=== PATIENT | male | born 1975 | race American Indian/Alaskan Native ===

== ENCOUNTER 2020-06-21 23:09 | Inpatient (IN) | payer OTHER ==
[2020-06-22 00:42] LABS: Basophils # (Auto) 0.1 K/mm3 (0.0-0.1); Eosinophils % (Auto) 0.6 % (0.0-4.3); Hematocrit 37.2 % (35.5-45.6); Hemoglobin 12.6 gm/dl (11.8-15.2); Lymphocytes # (Auto) 2.1 K/mm3 (1.2-5.4); Lymphocytes % (Auto) 34.9 % (13.4-35.0); Mean Corpuscular HGB Conc 34 % (32-34); Mean Corpuscular Volume 87 fl (84-94); Monocytes # (Auto) 0.3 K/mm3 (0.0-0.8); Monocytes % (Auto) 5.8 % (0.0-7.3); Platelet Count 226 K/mm3 (140-440); Red Blood Count 4.25 M/mm3 (3.65-5.03); Red Cell Distribution Width 12.8 % (13.2-15.2)
[2020-06-22 01:20] LABS: BUN/Creatinine Ratio 7; Blood Urea Nitrogen 8 mg/dL (9-20); Calcium 9.6 mg/dL (8.4-10.2); Hemolysis Index 43
[2020-06-22] MEDS ORDERED: SODIUM CHLORIDE 0.9% 1000 ML 1,000 ML IV ONE (02:06)
[2020-06-22] MEDS ORDERED: THIAMINE 100 MG, FOLIC ACID 1 MG, MULTIPLE VITAMIN INJ, ADULT 10 ML in SODIUM CHLORIDE ... IV ONE (02:06)
--- NOTE | 2020-06-22 02:11 | Emergency Department Report ---
ED Medical Clearance HPI - General Chief complaint: Medical Clearance Stated complaint: HYPERTENSION Time Seen by Provider: 06/22/20 02:05 Source: patient, EMS Mode of arrival: Stretcher Limitations: No Limitations - History of Present Illness Initial comments: Patient is a 45-year-old male that presents emergency room with complaints of needing medical clearance and high blood pressure. Patient states he went to [place] to go to the [facility] rehab for alcoholism and cocaine abuse and they found his blood pressure to be elevated and he sent him here for medical clearance. Patient states that he has alcoholism and is been doing pretty good with his sobriety but he relapsed this week. Patient states his been using marijuana and cocaine regularly. Patient states he has a past medical history of hypertension and diabetes. Patient denies chest pain/shortness of breath. Patient does not have any physical complaints. Patient denies abdominal pain. Patient states he did not take any of his blood pressure or diabetes medications for the last 24 to 48 hours. Patient denies recent travel. Patient denies recent international travel. Patient denies exposure to the novel coronavirus. Patient denies sick contacts. Patient denies fever and chills. Patient denies cough. Patient denies diarrhea. Patient denies coming in contact with anybody with symptoms of the novel coronavirus. MD Complaint: medical clearance request -: Sudden Reason for Medical Clearance: medical condition, psychiatric condition Place: home Alledged Intoxication: No Compliant with Home Medications: No Traumatic Symptoms: denies traumatic injury Associated Symptoms: denies other symptoms. denies: chest pain, shortness of breath, palpitations, diaphoresis, confusion, cough, fever/chills, headaches, anorexia, malaise, nausea/vomiting, rash, seizure, syncope, weakness Treatments Prior to Arrival: none Allergies/Adverse reactions: Allergies Allergy/AdvReac Type Severity Reaction Status Date / Time codeine Allergy Hives Verified 06/22/20 00:09 morphine Allergy Itching Verified 06/22/20 00:09 tramadol Allergy Hives Verified 06/22/20 00:09 ED Review of Systems ROS: Stated complaint: HYPERTENSION Other details as noted in HPI Constitutional: denies: chills, fever Eyes: denies: eye pain, eye discharge, vision change ENT: denies: ear pain, throat pain Respiratory: denies: cough, shortness of breath, wheezing Cardiovascular: denies: chest pain, palpitations Endocrine: no symptoms reported Gastrointestinal: denies: abdominal pain, nausea, diarrhea Genitourinary: denies: urgency, dysuria Musculoskeletal: denies: back pain, joint swelling, arthralgia Skin: denies: rash, lesions Neurological: denies: headache, weakness, paresthesias Psychiatric: denies: anxiety, depression Hematological/Lymphatic: denies: easy bleeding, easy bruising ED Past Medical Hx - Past Medical History Previous Medical History?: Yes Hx Hypertension: Yes Hx Diabetes: Yes Additional medical history: AVN (Bilateral hips) - Surgical History Past Surgical History?: Yes Additional Surgical History: Hernia Repair - Family History Family history: no significant - Social History Smoking Status: Current Every Day Smoker Substance Use Type: Alcohol, Cocaine, Marijuana ED Physical Exam - General Limitations: No Limitations General appearance: alert, in no apparent distress - Head Head exam: Present: atraumatic, normocephalic - Eye Eye exam: Present: normal appearance - ENT ENT exam: Present: mucous membranes moist - Neck Neck exam: Present: normal inspection - Respiratory Respiratory exam: Present: normal lung sounds bilaterally. Absent: respiratory distress - Cardiovascular Cardiovascular Exam: Present: regular rate, normal rhythm. Absent: systolic murmur, diastolic murmur, rubs, gallop - GI/Abdominal GI/Abdominal exam: Present: soft, normal bowel sounds - Rectal Rectal exam: Present: deferred - Extremities Exam Extremities exam: Present: normal inspection - Back Exam Back exam: Present: normal inspection - Neurological Exam Neurological exam: Present: alert, oriented X3 - Psychiatric Psychiatric exam: Present: normal affect, normal mood - Skin Skin exam: Present: warm, dry, intact, normal color. Absent: rash ED Course Vital Signs 06/22/20 06/22/20 06/22/20 00:02 02:04 02:16 Temperature 97.9 F Pulse Rate 82 Respiratory 18 Rate Blood Pressure 179/107 174/101 O2 Sat by Pulse 97 98 99 Oximetry 06/22/20 06/22/20 06/22/20 02:30 02:46 03:00 Temperature Pulse Rate Respiratory Rate Blood Pressure 173/98 167/99 171/100 O2 Sat by Pulse 98 99 98 Oximetry 06/22/20 06/22/20 06/22/20 03:16 03:30 03:46 Temperature Pulse Rate Respiratory Rate Blood Pressure 183/114 171/100 176/120 O2 Sat by Pulse 99 98 98 Oximetry 06/22/20 06/22/20 06/22/20 04:00 04:16 04:30 Temperature Pulse Rate Respiratory Rate Blood Pressure 185/131 194/123 180/113 O2 Sat by Pulse 100 99 100 Oximetry 06/22/20 04:46 Temperature Pulse Rate Respiratory Rate Blood Pressure 167/107 O2 Sat by Pulse 100 Oximetry - Reevaluation(s) Reevaluation #1: Patient blood pressure significantly high. Patient will be given hydralazine. Patient also will be given insulin. 06/22/20 03:28 Reevaluation #2: Patient blood sugar remains significantly high. Patient's blood pressure improving. I discussed all results with patient. I discussed plan of care with patient. Patient agrees with plan of care and admission. Patient to be admitted to the hospitalist service. 06/22/20 05:13 - Consultations Consultation #1: Hospitalist consulted for admission. Hospitalist to admit patient. 06/22/20 05:13 ED Medical Decision Making - Lab Data Result diagrams: 06/22/20 00:20 06/22/20 00:20 - Medical Decision Making Patient is a 45-year-old male that presents emergency room with complaints of needing medical clearance and hypertension. Patient had labs done which showed hyperglycemia. Patient has been noncompliant with his blood pressure and his diabetes medications for 2 days. Patient recently relapsed with alcohol and cocaine. Patient blood pressure elevated and patient was given hydralazine and his blood pressure improved. Patient's blood sugar significantly high and patient was given 15 units of insulin and fluids and the patient's blood sugar minimally improved. Patient then placed on a insulin drip. Patient admitted to the hospitalist service. Patient will be medically cleared by the hospitalist service. Critical care time documented. - Differential Diagnosis Medical clearance, hyperglycemia, noncompliance, cocaine abuse, HTN ED Disposition Clinical Impression: Hypertensive emergency, HHNC (hyperglycemic hyperosmolar nonketotic coma), Coca ine abuse, Alcohol abuse, Hypernatremia Disposition: OP ADMIT IP TO THIS HOSP Is pt being admited?: Yes Does the pt Need Aspirin: No Condition: Critical Instructions: Hypertension (ED) Referrals: PRIMARY CARE, [Primary Care Provider] - 3-5 Days Time of Disposition: 05:15 Critical Care Time: Yes Critical care time in (mins) excluding proc time.: 45 Critical care attestation.: If time is entered above; I have spent that time in minutes in the direct care of this critically ill patient, excluding procedure time. Critical Care Time: 45 MINUTES
[2020-06-22 02:38] LABS: Bilirubin,Urine NEG (Negative); Blood,Urine NEG (Negative); Color,Urine Colorless (Yellow); Protein,Urine <15 mg/dL mg/dL (Negative); Urobilinogen,Urine < 2.0 mg/dL (<2.0)
[2020-06-22 02:45] LABS: Amphetamine Screen,Urine PRESUMPTIVE NEGATIVE; Benzodiazepines Screen,Urine PRESUMPTIVE NEGATIVE; Cannabinoid Screen,Urine PRESUMPTIVE NEGATIVE; Cocaine Screen,Urine PRESUMPTIVE POSITIVE; Methadone Screen,Urine PRESUMPTIVE NEGATIVE; Opiate Screen,Urine PRESUMPTIVE NEGATIVE
[2020-06-22] MEDS ORDERED: hydrALAZINE 100 MG TAB PO ONE (03:26)
[2020-06-22] MEDS ORDERED: INSULIN REGULAR, HUMAN 100 UNIT/ML 3ML VIAL IV ONE (03:27)
[2020-06-22] MEDS ORDERED: IPRATROPIUM 0.02% NEBU 2.5 ML IH ONE (03:46)
[2020-06-22] MEDS ORDERED: ALBUTEROL 2.5 MG/3 ML NEBU IH ONE (03:46)
[2020-06-22] MEDS ORDERED: DEXTROSE 50% IN WATER (25GM) 50 ML SYRINGE IV PRN ×2 (05:12→06:55)
[2020-06-22] MEDS ORDERED: LORazepam 2 MG/ML VIAL IV PRN ×3 (05:14)
[2020-06-22] MEDS ORDERED: INSULIN REGULAR, HUMAN 100 UNITS in SODIUM CHLORIDE 0.9% 99 ML IV SCH (06:00)
[2020-06-22 06:03] LABS: BUN/Creatinine Ratio 7; Blood Urea Nitrogen 7 mg/dL (9-20); Calcium 9.2 mg/dL (8.4-10.2); Hemolysis Index 12
[2020-06-22] MEDS ORDERED: ACETAMINOPHEN 325 MG TAB PO PRN (06:48)
[2020-06-22] MEDS ORDERED: ONDANSETRON 4 MG/2 ML INJ IV PRN (06:52)
--- NOTE | 2020-06-22 07:04 | History and Physical Report ---
History of Present Illness Date of examination: 06/22/20 Date of admission: 06/22/20 Chief complaint: ELEVATED BLOOD PRESSURE Past History Past Medical History: diabetes, hypertension Past Surgical History: hernia repair Social history: alcohol abuse, other (COCAIN , MARIJUANA) Medications and Allergies Allergies Allergy/AdvReac Type Severity Reaction Status Date / Time codeine Allergy Hives Verified 06/22/20 00:09 morphine Allergy Itching Verified 06/22/20 00:09 tramadol Allergy Hives Verified 06/22/20 00:09 Active Meds: Active Medications Acetaminophen (Tylenol) 650 mg PO Q4H PRN PRN Reason: Headache Dextrose (D50w (25gm) Syringe) 50 ml IV Q30MIN PRN; Protocol PRN Reason: Hypoglycemia Dextrose (D50w (25gm) Syringe) 50 ml IV Q30MIN PRN; Protocol PRN Reason: Hypoglycemia Heparin Sodium (Porcine) (Heparin) 5,000 unit SUB-Q Q12HR AYANNA Hydralazine HCl (Apresoline) 25 mg PO Q8HR AYANNA Insulin Human Regular (Humulin R) 0 unit SUB-Q AC AYANNA; Protocol Insulin Human Regular (Humulin R) 0 unit SUB-Q QHS AYANNA; Protocol Labetalol HCl (Labetalol) 10 mg IV Q8H PRN PRN Reason: Blood Pressure Lorazepam (Ativan) 2 mg IV Q1HR PRN PRN Reason: CIWA-Ar 8-15 Lorazepam (Ativan) 4 mg IV Q1HR PRN PRN Reason: CIWA-Ar 16-25 Lorazepam (Ativan) 4 mg IV Q15MIN PRN PRN Reason: CIWA-Ar >25 Ondansetron HCl (Zofran) 4 mg IV Q8H PRN PRN Reason: Nausea And Vomiting Review of Systems Constitutional: no weight loss, no weight gain, no fever, no chills, no sweats, no night sweats, no fatigue, no weakness, no malaise Eyes: bilateral: other (NO BILATERAL EYE SYMPTOM) Ears, nose, mouth and throat: no ear pain, no ear discharge, no tinnitis, no nose pain Cardiovascular: high blood pressure, no chest pain, no palpitations, no lightheadedness Respiratory: no cough, no shortness of breath, no dyspnea on exertion Gastrointestinal: no abdominal pain, no nausea, no vomiting, no diarrhea, no constipation, no change in bowel habits, no hematemesis, no coffee ground emesis, no melena Genitourinary Male: no dysuria, no hematuria, no flank pain, no discharge, no urinary frequency, no urinary hesitancy, no nocturia, no erectile dysfunction Rectal: no pain, no itching Musculoskeletal: no neck stiffness, no neck pain, no shooting arm pain, no arm numbness/tingling, no low back pain, no shooting leg pain, no leg numbness/tingling Integumentary: no rash, no pruritis, no redness, no sores, no wounds, no jaundice, no boils, no bullae, no lesions, no darkening of skin, no depigmentation, no acne Neurological: no head injury, no paralysis, no weakness, no parathesias, no numbness, no tingling, no seizures, no syncope, no tremors, no vertigo, no headaches, no convulsions Psychiatric: no anxiety, no confusion Endocrine: no cold intolerance, no polydipsia, no polyuria, no nocturia Hematologic/Lymphatic: no lymphadenopathy Allergic/Immunologic: no urticaria Exam - Constitutional Vitals: Temp Pulse Resp BP Pulse Ox 97.9 F 82 18 167/107 100 06/22/20 00:02 06/22/20 00:02 06/22/20 00:02 06/22/20 04:46 06/22/20 04:46 General appearance: Present: no acute distress - EENT Eyes: Present: PERRL ENT: hearing intact, clear oral mucosa, dentition normal - Neck Neck: Present: supple, normal ROM. Absent: carotid bruits - Respiratory Respiratory effort: normal - Cardiovascular Rhythm: regular Heart Sounds: Present: S1 & S2. Absent: gallop - Extremities Extremities: no ischemia, No edema Peripheral Pulses: within normal limits - Abdominal General gastrointestinal: Present: soft, non-tender, non-distended. Absent: tender, distended, rigid, mass Male genitourinary: Present: deferred - Rectal Rectal Exam: deferred - Integumentary Integumentary: Present: clear, warm, dry - Musculoskeletal Musculoskeletal: strength equal bilaterally - Psychiatric Psychiatric: appropriate mood/affect HEART Score - HEART Score Risk factors: 1-2 risk factors Troponin: < normal limit - Critical Actions Critical Actions: 0-3 pts:0.9-1.7%risk of adverse cardiac event.Candidate for discharge Results - Labs CBC & Chem 7: 06/22/20 00:20 06/22/20 05:20 Labs: Laboratory Last Values WBC 5.9 K/mm3 (4.5-11.0) 06/22/20 00:20 RBC 4.25 M/mm3 (3.65-5.03) 06/22/20 00:20 Hgb 12.6 gm/dl (11.8-15.2) 06/22/20 00:20 Hct 37.2 % (35.5-45.6) 06/22/20 00:20 MCV 87 fl (84-94) 06/22/20 00:20 MCH 30 pg (28-32) 06/22/20 00:20 MCHC 34 % (32-34) 06/22/20 00:20 RDW 12.8 % (13.2-15.2) L 06/22/20 00:20 Plt Count 226 K/mm3 (140-440) 06/22/20 00:20 Lymph % (Auto) 34.9 % (13.4-35.0) 06/22/20 00:20 Upson % (Auto) 5.8 % (0.0-7.3) 06/22/20 00:20 Eos % (Auto) 0.6 % (0.0-4.3) 06/22/20 00:20 Baso % (Auto) 1.0 % (0.0-1.8) 06/22/20 00:20 Lymph # 2.1 K/mm3 (1.2-5.4) 06/22/20 00:20 Upson # 0.3 K/mm3 (0.0-0.8) 06/22/20 00:20 Eos # 0.0 K/mm3 (0.0-0.4) 06/22/20 00:20 Baso # 0.1 K/mm3 (0.0-0.1) 06/22/20 00:20 Seg Neutrophils % 57.7 % (40.0-70.0) 06/22/20 00:20 Seg Neutrophils # 3.4 K/mm3 (1.8-7.7) 06/22/20 00:20 Sodium 135 mmol/L (137-145) L 06/22/20 05:20 Potassium 3.5 mmol/L (3.6-5.0) L 06/22/20 05:20 Chloride 95.3 mmol/L (98-107) L 06/22/20 05:20 Carbon Dioxide 26 mmol/L (22-30) 06/22/20 05:20 Anion Gap 17 mmol/L 06/22/20 05:20 BUN 7 mg/dL (9-20) L 06/22/20 05:20 Creatinine 1.0 mg/dL (0.8-1.3) 06/22/20 05:20 Estimated GFR > 60 ml/min 06/22/20 05:20 BUN/Creatinine Ratio 7 % 06/22/20 05:20 Glucose 302 mg/dL (75-100) H 06/22/20 05:20 POC Glucose 291 (70-105) H 06/22/20 06:06 Calcium 9.2 mg/dL (8.4-10.2) 06/22/20 05:20 Phosphorus 2.30 mg/dL (2.5-4.5) L 06/22/20 05:20 Magnesium 1.80 mg/dL (1.7-2.3) 06/22/20 05:20 Urine Color Colorless (Yellow) 06/22/20 00:13 Urine Turbidity Clear (Clear) 06/22/20 00:13 Urine pH 5.0 (5.0-7.0) 06/22/20 00:13 Ur Specific [place] 1.028 (1.003-1.030) 06/22/20 00:13 Urine Protein <15 mg/dl mg/dL (Negative) 06/22/20 00:13 Urine Glucose (UA) >=500 mg/dL (Negative) 06/22/20 00:13 Urine Ketones Neg mg/dL (Negative) 06/22/20 00:13 Urine Blood Neg (Negative) 06/22/20 00:13 Urine Nitrite Neg (Negative) 06/22/20 00:13 Urine Bilirubin Neg (Negative) 06/22/20 00:13 Urine Urobilinogen < 2.0 mg/dL (<2.0) 06/22/20 00:13 Ur Leukocyte Esterase Neg (Negative) 06/22/20 00:13 Urine WBC (Auto) 0.0 /HPF (0.0-6.0) 06/22/20 00:13 Urine RBC (Auto) 2.0 /HPF (0.0-6.0) 06/22/20 00:13 Salicylates < 0.3 mg/dL (2.8-20.0) L 06/22/20 00:20 Urine Opiates Screen Presumptive negative 06/22/20 00:13 Urine Methadone Screen Presumptive negative 06/22/20 00:13 Acetaminophen 5.0 ug/mL (10.0-30.0) L 06/22/20 00:20 Ur Barbiturates Screen Presumptive negative 06/22/20 00:13 Ur Phencyclidine Scrn Presumptive negative 06/22/20 00:13 Ur Amphetamines Screen Presumptive negative 06/22/20 00:13 U Benzodiazepines Scrn Presumptive negative 06/22/20 00:13 Urine Cocaine Screen Presumptive positive 06/22/20 00:13 U Marijuana (THC) Screen Presumptive negative 06/22/20 00:13 Drugs of Abuse Note Disclamer 06/22/20 00:13 Plasma/Serum Alcohol < 0.01 % (0-0.07) 06/22/20 00:20 Assessment and Plan - Patient Problems (1) Hypertensive crisis Current Visit: Yes Status: Acute Plan to address problem: 1. I.V LABETALOL PRN FOR BLOOD P[RESSURE OF 150/90 OR GREATER 2. TABLET HYDRALAZINE 25 MG PO Q8H (2) Hyperosmolar syndrome Current Visit: Yes Status: Acute Plan to address problem: 1. IV INSULIN DRIP PER PROTOCOL 2. SERIAL BMP TESTS 3. ACCUCHECKS Q I HOUR THEN CHANGE TO ACQHS WHEN BLOOD SUGAR IS REDUCED TO BELOW 400MG/DL AND PATIENT SWITCHED TO SLIDING SCALE COVERAGE. 4.. DIABETIC DIET AND LOW SODIUM DIET.
[2020-06-22] MEDS ORDERED: INSULIN REGULAR, HUMAN 100 UNIT/ML 3ML VIAL ONE (07:25)
[2020-06-22] MEDS: INSULIN REGULAR, HUMAN 100 UNIT/ML 3ML VIAL SUB-Q SCH ×4 (07:26→21:18)
[2020-06-22 07:37] LABS: BUN/Creatinine Ratio 6; Blood Urea Nitrogen 6 mg/dL (9-20); Calcium 8.8 mg/dL (8.4-10.2); Hemolysis Index 27
[2020-06-22] MEDS ORDERED: cloNIDine 0.2 MG TAB PO SCH (09:05)
[2020-06-22] MEDS ORDERED: INSULIN GLARGINE 100 UNITS/ML SUB-Q ONE (09:06)
--- NOTE | 2020-06-22 09:10 | Event Note ---
Date: 06/22/20 Patient admitted earlier this morning 45-year-old male with past medical history significant for hypertension, diabetes mellitus was sent from [place] for medical clearance. In the ED patient has hypertensive urgency, uncontrolled diabetes, HHS with blood sugar of 596. Patient will be admitted to the floor and managed for the above conditions. Patient was placed on hydralazine, labetalol as needed and clonidine. Will monitor his blood pressure. Patient was given IV insulin in the emergency department and currently his blood sugar is 290. I will give him a dose of Lantus 20 units, sliding scale insulin, ADA diet and will monitor his blood sugar and adjust insulin as needed. Will check hemoglobin A1c. Patient will need blood pressure medications and hypoglycemics at the time of discharge.
[2020-06-22] MEDS ORDERED: cloNIDine 0.2 MG TAB ONE (09:46)
[2020-06-22] MEDS ORDERED: HEPARIN 5,000 UNIT/1 ML VIAL ONE (09:49)
[2020-06-22] MEDS: HEPARIN 5,000 UNIT/1 ML VIAL SUB-Q SCH ×2 (09:53→21:13)
[2020-06-22 10:46] LABS: BUN/Creatinine Ratio 8; Blood Urea Nitrogen 7 mg/dL (9-20); Calcium 9.4 mg/dL (8.4-10.2); Hemolysis Index 4
[2020-06-22] MEDS ORDERED: INSULIN DETEMIR 26 UNIT SQ SCH ×2 (10:49→22:00)
[2020-06-22] MEDS ORDERED: INSULIN LISPRO 100 UNIT/ML VIAL 3 mL SUB-Q SCH (11:30)
[2020-06-22 11:33] LABS: BUN/Creatinine Ratio 6; Blood Urea Nitrogen 7 mg/dL (9-20); Calcium 8.6 mg/dL (8.4-10.2); Hemolysis Index 1
[2020-06-22] MEDS: PANTOPRAZOLE 40 MG TAB PO SCH (11:57)
[2020-06-22] MEDS: TAMSULOSIN 0.4 MG CAP PO SCH (11:58)
[2020-06-22] MEDS: FOLIC ACID 1 MG TAB PO SCH (11:58)
[2020-06-22] MEDS: metFORMIN 500 MG TAB PO SCH ×2 (12:26→21:18)
[2020-06-22] MEDS: amLODIPine 10 MG TAB PO SCH (12:27)
[2020-06-22] MEDS: LISINOPRIL 40 MG TAB PO SCH (12:27)
[2020-06-22] MEDS: hydroCHLOROthiazide 25 MG TAB PO SCH (12:27)
--- NOTE | 2020-06-22 13:36 | Consultation ---
History of Present Illness - Reason for Consult Consult date: 06/22/20 Reason for consult: alcoholism - History of Present Psychiatric Illness Juaquin Goss is a 45y/o male patient who states he was admitted into the hospital for "high blood pressure, sugar and avascular necrosis." He is lying in bed with his eyes closed. He arouses easily but never opens his eyes. The patient is oriented x 3. He is calm and cooperative. He is not forthcoming at times. The patient denies SI/HI. He describes his mood as "okay." He first denies any illicit drug use. When asking about UDS, He verbalizes "cocaine use and alcohol use." The patient states, "but I'm about to quit." He says he usually does "a 6 pack per day." He denies any outpatient psych. He says he gets "cymbalta from primary." He says he had "one suicide attempt last year." The patient says he "hasn't seen a psychiatrist in [facility]." He says he was diagnosed with "depression." The patient denies hallucinations of any kind. He also denies any problems with his appetite or sleep pattern. PAST PSYCHIATRIC HISTORY Diagnoses: Depression Suicide attempts or Self-harm behavior: Once Prior psychiatric hospitalizations: Denies Substance Abuse history: Cocaine, and alcohol Previous psychiatric medications tried: Cymbalta Outpatient treatment: Denies PAST MEDICAL HISTORY: Denies Family Psychiatric History: None reported or documented SOCIAL HISTORY Marital Status: Single Living Arrangements: Homeless Employment Status: Employed Access to guns/weapons: Denies Education: High school History of Abuse: none reported Legal History: none reported REVIEW OF SYSTEMS Constitutional: Negative for weight loss ENT: Negative for stridor Respiratory: Negative for cough or hemoptysis All other systems reviewed and are negative MENTAL STATUS EXAMINATION General Appearance: Dressed appropriately Behavior: Calm, and cooperative Mood: "okay" Affect and affective range: Congruent with stated mood Thought Process: Goal directed Thought Content: none Speech: Normal volume, Regular rate and rhythm Suicidal Ideation: Denies Homicidal Ideation: Denies Hallucinations: Denies Delusions: None elicited Insight and Judgment: Limited Memory/Cognition: Limited Attention: Normal Orientation: Alert, oriented Assessment Substance Induced Mood Disorder PLAN Continue current medications Sitter: Defer to primary Medical: Per primary Disposition: Does not meet criteria for inpatient psychiatric treatment at this time. The patient may discharge home once medically clear. The collar baster is to give him resources to establish outpatient psych, cognitive behavioral therapy, and drug rehab programs The collar baster is to give the patient resources for homeless shelters and group homes. He is to follow up with outpatient psych or primary in 7 to 14 days upon discharge He is to abstain from all illicit drug use and alcohol. Will sign off. Thank you for this consult. Medications and Allergies Allergies Allergy/AdvReac Type Severity Reaction Status Date / Time codeine Allergy Hives Verified 06/22/20 00:09 morphine Allergy Itching Verified 06/22/20 00:09 tramadol Allergy Hives Verified 06/22/20 00:09 Home Medications Medication Instructions Recorded Confirmed Last Taken Type Duloxetine HCl [Cymbalta] 20 mg PO QDAY 06/22/20 06/22/20 Unknown History Ergocalciferol (Vitamin D2) 50,000 unit PO QDAY 06/22/20 06/22/20 Unknown History [Vitamin D2] Esomeprazole Magnesium [NexIUM] 40 mg PO QDAY 06/22/20 06/22/20 Unknown History Folic Acid [Folvite] 1 mg PO QDAY 06/22/20 06/22/20 Unknown History Insulin Detemir [Levemir VIAL] 26 unit SQ QHS 06/22/20 06/22/20 Unknown History Lispro Insulin [HumaLOG] 9 unit SQ ACHS 06/22/20 06/22/20 Unknown History Metformin HCl [metFORMIN] 1,000 mg PO BID 06/22/20 06/22/20 Unknown History Pyridoxine [Vitamin B-6 50MG TAB] 50 mg PO DAILY 06/22/20 06/22/20 Unknown History Tamsulosin [Flomax] 0.4 mg PO QDAY 06/22/20 06/22/20 Unknown History amLODIPine [Norvasc] 10 mg PO DAILY 06/22/20 06/22/20 Unknown History hydroCHLOROthiazide [HCTZ] 25 mg PO QDAY 06/22/20 06/22/20 Unknown History lisinopriL [Zestril TAB] 40 mg PO QDAY 06/22/20 06/22/20 Unknown History Active Meds: Active Medications Acetaminophen (Tylenol) 650 mg PO Q4H PRN PRN Reason: Headache Amlodipine Besylate (Amlodipine) 10 mg PO DAILY AYANNA Last Admin: 06/22/20 12:27 Dose: 10 mg Documented by: Dextrose (D50w (25gm) Syringe) 50 ml IV Q30MIN PRN; Protocol PRN Reason: Hypoglycemia Duloxetine HCl (Cymbalta) 20 mg PO QDAY [facility] Folic Acid (Folvite) 1 mg PO QDAY [facility] Last Admin: 06/22/20 11:58 Dose: 1 mg Documented by: Heparin Sodium (Porcine) (Heparin) 5,000 unit SUB-Q Q12HR [facility] Last Admin: 06/22/20 09:53 Dose: 5,000 unit Documented by: Hydrochlorothiazide (Hctz) 25 mg PO QDAY [facility] Last Admin: 06/22/20 12:27 Dose: 25 mg Documented by: Insulin [facility] ([facility]us) [facility] Insulin Human Lispro (Humalog) 9 unit [facility] Insulin Human Regular (Humulin R) 0 unit SUB-Q [facility]; Protocol Last Admin: 06/22/20 12:26 Dose: 5 unit Documented by: Insulin Human Regular (Humulin R) [facility]; Protocol Labetalol HCl (Labetalol) 10 mg IV Q8H PRN PRN Reason: Blood Pressure Lisinopril (Zestril) 40 mg PO QDAY [facility] Last Admin: 06/22/20 12:27 Dose: 40 mg Documented by: Lorazepam (Ativan) 2 mg IV Q1HR PRN PRN Reason: CIWA-Ar 8-15 Lorazepam (Ativan) 4 mg IV Q1HR PRN PRN Reason: CIWA-Ar 16-25 Lorazepam (Ativan) 4 mg IV Q15MIN PRN PRN Reason: CIWA-Ar >25 Metformin HCl (Glucophage) 1,000 mg PO BID [facility] Last Admin: 06/22/20 12:26 Dose: 1,000 mg Documented by: Ondansetron HCl (Zofran) 4 mg IV Q8H PRN PRN Reason: Nausea And Vomiting Pantoprazole Sodium (Protonix) 40 mg PO QDAY [facility] Last Admin: 06/22/20 11:57 Dose: 40 mg Documented by: Pyridoxine HCl (Vitamin B-6) 50 mg PO DAILY [facility] Tamsulosin HCl (Flomax) 0.4 mg PO QDAY [facility] Last Admin: 06/22/20 11:58 Dose: 0.4 mg Documented by: Mental Status Exam - Vital signs Last Vital Signs Temp 98.3 F 06/22/20 10:45 Pulse 73 06/22/20 12:27 Resp 18 06/22/20 10:45 BP 147/96 06/22/20 12:27 Pulse Ox 100 06/22/20 10:45 Results Result Diagrams: 06/22/20 00:20 06/22/20 10:59 Abnormal lab results 06/22/20 06/22/20 06/22/20 Range/Units 00:19 00:20 00:20 RDW (13.2-15.2) % Sodium (137-145) mmol/L Potassium (3.6-5.0) mmol/L Chloride (98-107) mmol/L BUN (9-20) mg/dL Glucose (75-100) mg/dL POC Glucose > 500 H (70-105) Hemoglobin A1c (4-6) % Phosphorus (2.5-4.5) mg/dL Salicylates < 0.3 L (2.8-20.0) mg/dL Acetaminophen 5.0 L (10.0-30.0) ug/mL 06/22/20 06/22/20 06/22/20 Range/Units 00:20 00:20 04:54 RDW 12.8 L (13.2-15.2) % Sodium 131 L (137-145) mmol/L Potassium (3.6-5.0) mmol/L Chloride 87.5 L (98-107) mmol/L BUN 8 L (9-20) mg/dL Glucose 568 H* (75-100) mg/dL POC Glucose 455 H (70-105) Hemoglobin A1c (4-6) % Phosphorus (2.5-4.5) mg/dL Salicylates (2.8-20.0) mg/dL Acetaminophen (10.0-30.0) ug/mL 06/22/20 06/22/20 06/22/20 Range/Units 05:20 05:20 06:06 RDW (13.2-15.2) % Sodium 135 L (137-145) mmol/L Potassium 3.5 L (3.6-5.0) mmol/L Chloride 95.3 L (98-107) mmol/L BUN 7 L (9-20) mg/dL Glucose 302 H (75-100) mg/dL POC Glucose 291 H (70-105) Hemoglobin A1c (4-6) % Phosphorus 2.30 L (2.5-4.5) mg/dL Salicylates (2.8-20.0) mg/dL Acetaminophen (10.0-30.0) ug/mL 06/22/20 06/22/20 06/22/20 Range/Units 07:10 07:34 09:02 RDW (13.2-15.2) % Sodium 134 L (137-145) mmol/L Potassium 3.5 L (3.6-5.0) mmol/L Chloride 94.6 L 95.9 L (98-107) mmol/L BUN 6 L 7 L (9-20) mg/dL Glucose 295 H 255 H (75-100) mg/dL POC Glucose 295 H (70-105) Hemoglobin A1c (4-6) % Phosphorus (2.5-4.5) mg/dL Salicylates (2.8-20.0) mg/dL Acetaminophen (10.0-30.0) ug/mL 06/22/20 06/22/20 06/22/20 Range/Units 09:08 10:59 11:06 RDW (13.2-15.2) % Sodium 136 L (137-145) mmol/L Potassium 3.5 L (3.6-5.0) mmol/L Chloride 95.8 L (98-107) mmol/L BUN 7 L (9-20) mg/dL Glucose 350 H (75-100) mg/dL POC Glucose 349 H (70-105) Hemoglobin A1c 13.3 H (4-6) % Phosphorus (2.5-4.5) mg/dL Salicylates (2.8-20.0) mg/dL Acetaminophen (10.0-30.0) ug/mL All other labs normal.
[2020-06-22] MEDS: DULoxetine 20 MG CAP PO SCH (13:53)
[2020-06-22] MEDS: PYRIDOXINE 50 MG TAB PO SCH (13:53)
[2020-06-22] MEDS ORDERED: hydrALAZINE 25 MG TAB PO SCH (14:00)
[2020-06-22 15:53] LABS: BUN/Creatinine Ratio 6; Blood Urea Nitrogen 6 mg/dL (9-20); Calcium 8.5 mg/dL (8.4-10.2); Hemolysis Index 2
[2020-06-22] MEDS: INSULIN LISPRO 100 UNIT/ML VIAL 3 mL SUB-Q SCH ×2 (16:59→21:18)
[2020-06-22] MEDS ORDERED: INSULIN GLARGINE 100 UNITS/ML SUB-Q SCH (22:00)
[2020-06-23 03:38] LABS: BUN/Creatinine Ratio 6; Blood Urea Nitrogen 7 mg/dL (9-20); Calcium 8.4 mg/dL (8.4-10.2); Hemolysis Index 7
[2020-06-23] MEDS: INSULIN LISPRO 100 UNIT/ML VIAL 3 mL SUB-Q SCH ×4 (08:56→22:56)
[2020-06-23] MEDS: INSULIN REGULAR, HUMAN 100 UNIT/ML 3ML VIAL SUB-Q SCH ×4 (08:56→22:55)
[2020-06-23] MEDS: DULoxetine 20 MG CAP PO SCH (09:05)
[2020-06-23] MEDS: PANTOPRAZOLE 40 MG TAB PO SCH (09:05)
[2020-06-23] MEDS: HEPARIN 5,000 UNIT/1 ML VIAL SUB-Q SCH ×2 (09:05→22:59)
[2020-06-23] MEDS: PYRIDOXINE 50 MG TAB PO SCH (09:05)
[2020-06-23] MEDS: TAMSULOSIN 0.4 MG CAP PO SCH (09:05)
[2020-06-23] MEDS: metFORMIN 500 MG TAB PO SCH ×2 (09:05→22:55)
[2020-06-23] MEDS: FOLIC ACID 1 MG TAB PO SCH (09:05)
[2020-06-23] MEDS: amLODIPine 10 MG TAB PO SCH (09:06)
[2020-06-23] MEDS: LISINOPRIL 40 MG TAB PO SCH (09:06)
[2020-06-23] MEDS: hydroCHLOROthiazide 25 MG TAB PO SCH (09:07)
[2020-06-23] MEDS ORDERED: INSULIN GLARGINE 100 UNITS/ML SUB-Q ONE ×2 (10:23→10:31)
--- NOTE | 2020-06-23 10:33 | Progress Note ---
Assessment and Plan Assessment and plan: --Hypokalemia; potassium 3.4 Replenish with 30 mEq of KCl oral Closely monitor electrolytes --Hyponatremia; probably pseudohyponatremia Secondary to hyperglycemia, as blood sugars improved Sodium levels will improve, closely monitor electrolytes --Hypertensive emergency; present on admission Patient's blood pressures are moderate control Continue current antihypertensives and PRN medications --Hyperosmolar hyperglycemia; present on admission Patient's blood sugars remain uncontrolled Did not receive last night's glargine insulin due to low blood sugars However this morning blood sugars are between 300s and 400s We will give 1 dose of 10 units of glargine this morning Continue metformin and 26 units of glargine nightly A1c 13.3 --Type 2 diabetes mellitus; uncontrolled A1c 13.3, diabetic education, diabetic diet education --History of BPH; continue tamsulosin --DVT prophylaxis; Lovenox --We will closely monitor the patient and adjust the management as needed Plan of care reviewed with the patient and his nurse History Interval history: I have seen and examined the patient at the bedside this morning Patient's chart medications tests reviewed admitted with hyperosmolar hyperglycemia This morning blood sugars are in 300s Patient's vital signs reviewed Hospitalist Physical - Constitutional Vitals: Temp Pulse Resp BP Pulse Ox 98.4 F 69 20 142/63 99 06/23/20 08:19 06/23/20 09:06 06/23/20 08:19 06/23/20 09:06 06/23/20 08:19 General appearance: Present: no acute distress, well-nourished - EENT Eyes: Present: PERRL, EOM intact - Neck Neck: Present: supple, normal ROM - Respiratory Respiratory effort: normal Respiratory: bilateral: diminished, negative: rales, rhonchi, wheezing - Cardiovascular Rhythm: regular Heart Sounds: Present: S1 & S2 - Extremities Extremities: no ischemia, No edema - Abdominal General gastrointestinal: soft, non-tender, non-distended, normal bowel sounds - Integumentary Integumentary: Present: clear, warm - Psychiatric Psychiatric: appropriate mood/affect, cooperative - Neurologic Neurologic: CNII-XII intact, moves all extremities HEART Score - HEART Score Risk factors: 1-2 risk factors Troponin: < normal limit - Critical Actions Critical Actions: 0-3 pts:0.9-1.7%risk of adverse cardiac event.Candidate for discharge Results - Labs CBC & Chem 7: 06/22/20 00:20 06/23/20 11:46 Labs: Laboratory Last Values WBC 5.9 K/mm3 (4.5-11.0) 06/22/20 00:20 RBC 4.25 M/mm3 (3.65-5.03) 06/22/20 00:20 Hgb 12.6 gm/dl (11.8-15.2) 06/22/20 00:20 Hct 37.2 % (35.5-45.6) 06/22/20 00:20 MCV 87 fl (84-94) 06/22/20 00:20 MCH 30 pg (28-32) 06/22/20 00:20 MCHC 34 % (32-34) 06/22/20 00:20 RDW 12.8 % (13.2-15.2) L 06/22/20 00:20 Plt Count 226 K/mm3 (140-440) 06/22/20 00:20 Lymph % (Auto) 34.9 % (13.4-35.0) 06/22/20 00:20 Andrews % (Auto) 5.8 % (0.0-7.3) 06/22/20 00:20 Eos % (Auto) 0.6 % (0.0-4.3) 06/22/20 00:20 Baso % (Auto) 1.0 % (0.0-1.8) 06/22/20 00:20 Lymph # 2.1 K/mm3 (1.2-5.4) 06/22/20 00:20 Andrews # 0.3 K/mm3 (0.0-0.8) 06/22/20 00:20 Eos # 0.0 K/mm3 (0.0-0.4) 06/22/20 00:20 Baso # 0.1 K/mm3 (0.0-0.1) 06/22/20 00:20 Seg Neutrophils % 57.7 % (40.0-70.0) 06/22/20 00:20 Seg Neutrophils # 3.4 K/mm3 (1.8-7.7) 06/22/20 00:20 Sodium 132 mmol/L (137-145) L 06/23/20 02:31 Potassium 3.4 mmol/L (3.6-5.0) L 06/23/20 02:31 Chloride 93.1 mmol/L (98-107) L 06/23/20 02:31 Carbon Dioxide 25 mmol/L (22-30) 06/23/20 02:31 Anion Gap 17 mmol/L 06/23/20 02:31 BUN 7 mg/dL (9-20) L 06/23/20 02:31 Creatinine 1.1 mg/dL (0.8-1.3) 06/23/20 02:31 Estimated GFR > 60 ml/min 06/23/20 02:31 BUN/Creatinine Ratio 6 % 06/23/20 02:31 Glucose 400 mg/dL (75-100) H 06/23/20 02:31 POC Glucose 358 (70-105) H 06/23/20 07:49 Hemoglobin A1c 13.3 % (4-6) H 06/22/20 09:08 Calcium 8.4 mg/dL (8.4-10.2) 06/23/20 02:31 Phosphorus 2.30 mg/dL (2.5-4.5) L 06/22/20 05:20 Magnesium 1.80 mg/dL (1.7-2.3) 06/22/20 05:20 Urine Color Colorless (Yellow) 06/22/20 00:13 Urine Turbidity Clear (Clear) 06/22/20 00:13 Urine pH 5.0 (5.0-7.0) 06/22/20 00:13 Ur Specific [place] 1.028 (1.003-1.030) 06/22/20 00:13 Urine Protein <15 mg/dl mg/dL (Negative) 06/22/20 00:13 Urine Glucose (UA) >=500 mg/dL (Negative) 06/22/20 00:13 Urine Ketones Neg mg/dL (Negative) 06/22/20 00:13 Urine Blood Neg (Negative) 06/22/20 00:13 Urine Nitrite Neg (Negative) 06/22/20 00:13 Urine Bilirubin Neg (Negative) 06/22/20 00:13 Urine Urobilinogen < 2.0 mg/dL (<2.0) 06/22/20 00:13 Ur Leukocyte Esterase Neg (Negative) 06/22/20 00:13 Urine WBC (Auto) 0.0 /HPF (0.0-6.0) 06/22/20 00:13 Urine RBC (Auto) 2.0 /HPF (0.0-6.0) 06/22/20 00:13 Salicylates < 0.3 mg/dL (2.8-20.0) L 06/22/20 00:20 Urine Opiates Screen Presumptive negative 06/22/20 00:13 Urine Methadone Screen Presumptive negative 06/22/20 00:13 Acetaminophen 5.0 ug/mL (10.0-30.0) L 06/22/20 00:20 Ur Barbiturates Screen Presumptive negative 06/22/20 00:13 Ur Phencyclidine Scrn Presumptive negative 06/22/20 00:13 Ur Amphetamines Screen Presumptive negative 06/22/20 00:13 U Benzodiazepines Scrn Presumptive negative 06/22/20 00:13 Urine Cocaine Screen Presumptive positive 06/22/20 00:13 U Marijuana (THC) Screen Presumptive negative 06/22/20 00:13 Drugs of Abuse Note Disclamer 06/22/20 00:13 Plasma/Serum Alcohol < 0.01 % (0-0.07) 06/22/20 00:20 Swartz/IV: Voiding Method Toilet IV Catheter Type [Left Peripheral IV Antecubital] Active Medications - Current Medications Current Medications: Generic Name Dose Route Start Last Admin Trade Name Freq PRN Reason Stop Dose Admin Acetaminophen 650 mg 06/22/20 06:48 Tylenol PO Q4H PRN Headache Amlodipine Besylate 10 mg 06/22/20 11:00 06/23/20 09:06 Amlodipine PO 10 mg DAILY AYANNA Administration Dextrose 50 ml 06/22/20 05:12 06/22/20 21:13 D50w (25gm) Syringe IV 16 ml Q30MIN PRN Administration Hypoglycemia Protocol Duloxetine HCl 20 mg 06/22/20 11:00 06/23/20 09:05 Cymbalta PO 20 mg QDAY AYANNA Administration Folic Acid 1 mg 06/22/20 11:00 06/23/20 09:05 Folvite PO 1 mg QDAY AYANNA Administration Heparin Sodium (Porcine) 5,000 unit 06/22/20 10:00 06/23/20 09:05 Heparin SUB-Q 5,000 unit Q12HR AYANNA Administration Hydrochlorothiazide 25 mg 06/22/20 11:00 06/23/20 09:07 Hctz PO 25 mg QDAY AYANNA Administration Insulin Glargine 26 units 06/22/20 22:00 06/22/20 21:18 Lantus SUB-Q Not Given QHS AYANNA Insulin Human Lispro 9 unit 06/22/20 16:30 06/23/20 08:56 Humalog SUB-Q 9 unit ACHS AYANNA Administration Insulin Human Regular 0 unit 06/22/20 07:30 06/23/20 08:56 Humulin R SUB-Q 5 unit AC AYANNA Administration Protocol Insulin Human Regular 0 unit 06/22/20 22:00 06/22/20 21:18 Humulin R SUB-Q Not [facility] Protocol Labetalol HCl 10 mg 06/22/20 06:44 Labetalol IV Q8H PRN Blood Pressure Lisinopril 40 mg 06/22/20 11:00 06/23/20 09:06 Zestril PO 40 mg QDAY AYANNA Administration Lorazepam 2 mg 06/22/20 05:14 Ativan IV Q1HR PRN CIWA-Ar 8-15 Lorazepam 4 mg 06/22/20 05:14 Ativan IV Q1HR PRN CIWA-Ar 16-25 Lorazepam 4 mg 06/22/20 05:14 Ativan IV Q15MIN PRN CIWA-Ar >25 Metformin HCl 1,000 mg 06/22/20 10:45 06/23/20 09:05 Glucophage PO 1,000 mg BID AYANNA Administration Ondansetron HCl 4 mg 06/22/20 06:52 Zofran IV Q8H PRN Nausea And Vomiting Pantoprazole Sodium 40 mg 06/22/20 10:45 06/23/20 09:05 Protonix PO 40 mg QDAY AYANNA Administration Pyridoxine HCl 50 mg 06/22/20 11:00 06/23/20 09:05 Vitamin B-6 PO 50 mg DAILY AYANNA Administration Tamsulosin HCl 0.4 mg 06/22/20 11:00 06/23/20 09:05 Flomax PO 0.4 mg QDAY AYANNA Administration
[2020-06-23] MEDS ORDERED: POTASSIUM CHLORIDE ER 10 MEQ TAB PO ONE (10:38)
[2020-06-23 12:32] LABS: BUN/Creatinine Ratio 7; Blood Urea Nitrogen 6 mg/dL (9-20); Calcium 9.1 mg/dL (8.4-10.2); Hemolysis Index 3
[2020-06-23] MEDS ORDERED: INSULIN GLARGINE 100 UNITS/ML SUB-Q SCH (22:00)
[2020-06-24] MEDS: DULoxetine 20 MG CAP PO SCH (09:24)
[2020-06-24] MEDS: LISINOPRIL 40 MG TAB PO SCH (09:25)
[2020-06-24] MEDS: PYRIDOXINE 50 MG TAB PO SCH (09:25)
[2020-06-24] MEDS: PANTOPRAZOLE 40 MG TAB PO SCH (09:25)
[2020-06-24] MEDS: TAMSULOSIN 0.4 MG CAP PO SCH (09:25)
[2020-06-24] MEDS: hydroCHLOROthiazide 25 MG TAB PO SCH (09:25)
[2020-06-24] MEDS: metFORMIN 500 MG TAB PO SCH (09:26)
[2020-06-24] MEDS: FOLIC ACID 1 MG TAB PO SCH (09:26)
[2020-06-24] MEDS: amLODIPine 10 MG TAB PO SCH (09:26)
[2020-06-24] MEDS: HEPARIN 5,000 UNIT/1 ML VIAL SUB-Q SCH (09:28)
[2020-06-24] MEDS: INSULIN LISPRO 100 UNIT/ML VIAL 3 mL SUB-Q SCH ×2 (09:29→12:32)
[2020-06-24] MEDS: INSULIN REGULAR, HUMAN 100 UNIT/ML 3ML VIAL SUB-Q SCH ×2 (09:30→12:32)
--- NOTE | 2020-06-24 11:44 | Discharge Summary ---
Providers - Providers Date of Admission: 06/22/20 05:49 Date of discharge: 06/24/20 Attending physician: DANIEL ALBERTO 06/23/20 00:10 Consult to Case Management [CONS] Routine Services Needed at Discharge: Other Notified:: no Primary care physician: [employer] Hospitalization Condition: Stable Disposition: DC-01 TO HOME OR SELFCARE Time spent for discharge: 32 min Core Measure Documentation - Palliative Care Palliative Care/ Comfort Measures: Not Applicable - Core Measures Any of the following diagnoses?: none Exam - Constitutional Vitals: Temp Pulse Resp BP Pulse Ox 98.2 F 81 18 161/101 96 06/24/20 07:45 06/24/20 07:45 06/24/20 10:00 06/24/20 09:25 06/24/20 10:00 General appearance: Present: no acute distress, well-nourished - EENT Eyes: Present: PERRL, EOM intact - Neck Neck: Present: supple, normal ROM - Respiratory Respiratory effort: normal Respiratory: bilateral: diminished, negative: rales, rhonchi, wheezing - Cardiovascular Rhythm: regular Heart Sounds: Present: S1 & S2 - Extremities Extremities: no ischemia, No edema - Abdominal General gastrointestinal: Present: soft, non-tender, non-distended, normal bowel sounds - Integumentary Integumentary: Present: clear, warm - Musculoskeletal Musculoskeletal: strength equal bilaterally - Psychiatric Psychiatric: appropriate mood/affect, cooperative - Neurologic Neurologic: moves all extremities Plan Activity: no restrictions Diet: diabetic Additional Instructions: Advised to follow with private metal or wood blocker for better control of your diabetes mellitus. Strongly advised to comply with medications, diet and follow-up visits with your PMD. If you have worsening symptoms contact MD or go to emergency room as needed Follow up with: PRIMARY CARE,MD [Primary Care Provider] - 3-5 Days Prescriptions: amLODIPine 10 mg PO DAILY #30 hydrALAZINE [Apresoline TAB] 25 mg PO Q8HR #90 tablet Tamsulosin [Flomax] 0.4 mg PO QDAY #30 cap Folic Acid [Folvite] 1 mg PO QDAY #30 hydroCHLOROthiazide [HCTZ] 25 mg PO QDAY #30 tablet hydroCHLOROthiazide [HCTZ] 25 mg PO QDAY #90 Insulin Detemir [Levemir VIAL] 13 unit SQ BID #2 vial Metformin HCl [metFORMIN] 1,000 mg PO BID #60 Esomeprazole Magnesium [NexIUM] 40 mg PO QDAY #30 Pyridoxine [Vitamin B-6 50MG TAB] 50 mg PO DAILY #30 lisinopriL [Zestril TAB] 40 mg PO QDAY #30
[2020-06-24 12:36] VITALS: BP 147/98
[2020-06-24] MEDS ORDERED: hydrALAZINE 25 MG TAB PO SCH (14:00)
== END 2020-06-24 15:05 | disposition home or self-care (01) | DRG 304 ==
LOC: ED 23:09 → IMCU 06-22 05:49 → 4A 06-22 06:55
PROVIDERS: ADMIT Internal Medicine; ATTEND Internal Medicine
DX: I16.1 Hypertensive emergency (principal); E11.01 Type 2 diabetes mellitus with hyperosmolarity with coma; E87.0 Hyperosmolality and hypernatremia; E87.6 Hypokalemia; F10.10 Alcohol abuse, uncomplicated; F14.10 Cocaine abuse, uncomplicated; I10 Essential (primary) hypertension; E11.9 Type 2 diabetes mellitus without complications; Z88.5 Allergy status to narcotic agent; F17.200 Nicotine dependence, unspecified, uncomplicated; F32.9 Major depressive disorder, single episode, unspecified; Z59.0 Homelessness; N40.0 Benign prostatic hyperplasia without lower urinary tract symptoms
CPT/HCPCS: 36415; 80048; 80307; 80320; 81001; 82962; 83036; 83735; 84100; 85025; 87641; 96365; 96366; 96368; 96375; G0378; G0480; J1644; J1815; J3411; J7030

== ENCOUNTER 2022-01-08 12:46 | Outpatient (CLI) | payer OTHER | END 2022-01-08 12:47 | disposition home or self-care (01) | LOC: LAB 12:46 | PROVIDERS: ATTEND Psychiatry & Neurology Psychiatry | DX: A53.9 Syphilis, unspecified (principal) | CPT/HCPCS: 36415; 86592 ==